=== PATIENT | female | born 1980 | race Caucasian/White ===

== ENCOUNTER 2021-07-07 08:00 | Emergency (ER) | payer OTHER, SELFPAY ==
[2021-07-07 08:40] LABS: Bilirubin Negative (Negative); Blood, Urine Moderate (Negative); Glucose, Urine (Dipstick) Negative (Negative); Ketone, Urine Negative (Negative); Leukocyte Small (Negative); Nitrite Negative (Negative); Protein, Urine (Dipstick) Negative (Neg-Trace); Specific Gravity, Urine 1.025 (1.005-1.030); Urobilinogen 0.2 mg/dL (Less than 2); pH, Urine 5.5 (5.0-9.0)
[2021-07-07 08:53] LABS: Clarity Hazy (Clear)
[2021-07-07 08:54] LABS: Bacteria/HPF 1+ HPF (None Seen)
[2021-07-09 20:13] LABS: Chlamydia by PCR Not Detected (NotDetected); GC by PCR Not Detected (NotDetected)
== END 2021-07-07 09:44 | disposition home or self-care (01) ==
LOC: MADERS 08:00
DX: O20.0 Threatened abortion (principal); O09.521 Supervision of elderly multigravida, first trimester; O99.511 Diseases of the respiratory system complicating pregnancy, first trimester; J45.909 Unspecified asthma, uncomplicated; Z3A.11 11 weeks gestation of pregnancy
CPT/HCPCS: 36415; 81003; 81015; 84702; 86900; 86901; 87070; 87480; 87491; 87510; 87591; 87660; 99284

== ENCOUNTER 2022-11-09 12:26 | Emergency (ER) | payer MEDICAID ==
[2022-11-09] MEDS ORDERED: Amoxicillin/Potassium Clav 875 MG TAB ONE (12:57)
== END 2022-11-09 13:01 | disposition home or self-care (01) ==
LOC: MADERS 12:26
DX: K02.9 Dental caries, unspecified (principal); E03.9 Hypothyroidism, unspecified
CPT/HCPCS: 99282